=== PATIENT | male | born 1955 | race Caucasian/White ===

== ENCOUNTER 2017-03-10 05:27 | Emergency (ER) | payer OTHER ==
[~2017-03-10] VITALS: Ht 167.6 cm; Wt 90.9 kg
[~2017-03-10 05:27] MED LIST: ALEVE220 M2 PO; AMOX TR-K CLV1 EAC4 PO; AUGMENTIN875 MG PO; DILAUDID2 MG PO; FLOMAX0.4 MG PO; FLUTICASONE PRO16 GM BOTH NARES; IRBESARTAN300 MG PO; LOSARTAN-HCTZ1 EACH PO; NORCO 5/3251 TABLET PO; PERCOCET 5/31 TABLET PO; TRAMADOL HCL50 MG PO; VITAMIN A DAY1 EACH PO; VITAMIN D-32000 UNI2 PO; ZOFRAN4 MG PO
[2017-03-10 06:28] LABS: HEMATOCRIT 41.2 % (38.0-50.0); MCH 32.7 PG (29.0-34.0); MCV 93.6 FL (86-99); MEAN PLAT.VOLUME 9.2 uM^3 (9.0-12.4); PLATELET COUNT 278 K/uL (156-360); RBC DIS.WIDTH-CV 12.6 % (11.8-14.6); RBC DIS.WIDTH-SD 43.5 % (39-53); WHITE BLOOD COUNT 13.1 K/uL (4.1-10.2)
[2017-03-10 06:32] LABS: ADD MIUA? YES; BILIRUBIN NEGATIVE; BLOOD LARGE; COLOR AMBER ((YELLOW)); GLUCOSE (STRIP) NEGATIVE; KETONES NEGATIVE; LEUKOCYTES LARGE; NITRITE NEGATIVE; PROTEIN (STRIP) 100; SPECIFIC GRAVITY 1.027 (1.000-1.030); UROBILINOGEN 0.2 MG/DL (0.2-1.0)
[2017-03-10 06:38] LABS: CHLORIDE 103 mEq/L (99-109); POTASSIUM 3.9 mEq/L (3.7-5.4); SODIUM 139 mEq/L (136-147)
[2017-03-10 06:40] LABS: GLUCOSE 101 mg/dL (70-99)
[2017-03-10 06:41] LABS: ANION GAP 11 MEQ/L (2-14)
[2017-03-10 06:44] LABS: GFR ESTIMATE (CALCULATED) > 59 mL/min/; UREA NITROGEN (BUN) 18 mg/dL (9-23)
[2017-03-10 07:20] LABS: BACTERIA 1+ /HPF; EPITHELIAL CELLS NONE SEEN /HPF; MUCUS NONE SEEN /LPF; RED BLOOD CELLS 20-30 /HPF (0-5); UCUL ADDED? YES; WHITE BLOOD CELLS TNTC /HPF (0-5)
[2017-03-10] MEDS ORDERED: BACTRIM,SEPT1 TABLET PO (09:22)
[2017-03-10] MEDS ORDERED: PERCOCET 5/31 TABLET PO (09:24)
[2017-03-10] MEDS ORDERED: FLOMAX0.4 MG PO (09:24)
[2017-03-10 09:34] VITALS: BP 121/77
== END 2017-03-10 09:35 | disposition home or self-care (01) ==
LOC: EME 05:27
PROVIDERS: Emergency Medicine
DX: N20.0 Calculus of kidney (principal); N39.0 Urinary tract infection, site not specified; I10 Essential (primary) hypertension; Z87.442 Personal history of urinary calculi; Z87.440 Personal history of urinary (tract) infections; F17.200 Nicotine dependence, unspecified, uncomplicated
CPT/HCPCS: 74176; 80048; 81003; 85027; 87077; 87086; 87186; 99281; 99284; J0696; J7050